=== PATIENT | female | born 1980 | race Caucasian/White ===

== ENCOUNTER 2016-07-14 22:32 | Emergency (ER) | payer OTHER ==
[~2016-07-14] VITALS: Ht 170.2 cm; Wt 75.5 kg
[2016-07-14 22:50] VITALS: Ht 170.2 cm; Wt 75.5 kg
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
--- NOTE | 2016-07-15 01:38 | RADRPT ---
PROCEDURE: CT Cervical Spine without contrast. CLINICAL INDICATION: Trauma TECHNIQUE: Noncontrast CT of the cervical spine was performed with axial images. Coronal and sagitta l images were also performed. The administered radiation dose was CTDI vol = 22 mGy, DLP = 594 mGy- cm. COMPARISON: There are no similar studies submitted for comparison. FINDINGS: Vertebral body stature and alignment are maintained. No acute fracture or subluxation is identified. The paravertebral and paraspinous soft tissues are unremarkable. IMPRESSION: No acute fracture or subluxation. RPTAT: HIKT .Filipe Aggarwal MD, MD Date Time Electronically viewed and signed by .Filipe Aggarwal MD, on 07/15/2016 01:38 .T/
--- NOTE | 2016-07-15 01:44 | RADRPT ---
PROCEDURE: CT Lumbar Spine. CLINICAL INDICATION: Trauma TECHNIQUE: Noncontrast CT of the lumbar spine was performed with multiplanar reformatted images gen erated from the axial acquired data. The administered radiation dose was CTDI vol = 16 mGy, DLP = 5 78 mGy-cm. COMPARISON: There are no similar studies submitted for comparison. FINDINGS: SCOLIOSIS: No significant scoliosis. LORDOSIS: Within normal limits. VERTEBRAL BODY HEIGHTS: Maintained. ALLIGNMENT: Within normal limits. OSSEOUS STRUCTURES: There is no destructive osseous lesion.There is no acute fracture. DISCS: The discs are normal in height. T12-L1 : There is no disc herniation, spinal canal, or foraminal stenosis. L1-L2 : There is no disc herniation, spinal canal, or foraminal stenosis. L2-L3 : There is no disc herniation, spinal canal, or foraminal stenosis. L3-L4 : There is no disc herniation, spinal canal, or foraminal stenosis. L4-L5 : There is no disc herniation, spinal canal, or foraminal stenosis. L5-S1 : There is no disc herniation, spinal canal, or foraminal stenosis. SACRUM: The sacroiliac joints are intact. OTHER: The aorta is normal in caliber. IMPRESSION: No acute fracture or subluxation. RPTAT: HIKT .Filipe Aggarwal MD, Date Time Electronically viewed and signed by .Filipe Aggarwal MD, on 07/15/2016 01:44 .T/
[2016-07-15] MEDS ORDERED: CYCL-319 PO ×2 (01:58→03:07)
[2016-07-15] MEDS ORDERED: IBUP-1542 PO ×2 (01:58→03:07)
[2016-07-15] MEDS ORDERED: HYDR-906 PO ×2 (01:58→03:07)
== END 2016-07-15 02:06 | disposition home or self-care (01) ==
LOC: FTE 22:32 → E/R 07-15 02:06
DX: S16.1XXA Strain of muscle, fascia and tendon at neck level, initial encounter (principal); S39.012A Strain of muscle, fascia and tendon of lower back, initial encounter; W22.8XXA Striking against or struck by other objects, initial encounter; Y92.810 Car as the place of occurrence of the external cause
CPT/HCPCS: 72125; 72131; Z7502